=== PATIENT | male | born 1955 | race Caucasian/White ===

== ENCOUNTER 2020-10-22 05:35 | Inpatient (IN) | payer OTHER, SELFPAY ==
[2020-10-22] VITALS (28 sets, daily range): BP systolic 111–168; BP diastolic 47–91; PULSE 72–87; RESP 12–17; TEMP 35.5–36.8; O2SAT 94–99; BMI 30.9
--- NOTE | ~2020-10-22 | US_ITS ---
EXAMINATION: US carotid duplex BI EXAM DATE: 10/24/2020 13:25 INDICATION: Carotid bruit. TECHNIQUE: Grayscale, color and pulsed Doppler images of the cervical carotid arteries were obtained . The degree of vessel stenosis is placed in one of the following categories: normal, <50% stenosis, 50-69% stenosis, >=70% stenosis but less than near-occlusion, near-occlusion, or occlusion. Note that percent stenosis relative to normal distal artery lumen diameter is indirectly measured from velocit y measurements as described by George, et al. Radiology 2003; 229:340-346. There is no prior study fo r comparison. FINDINGS: RIGHT SIDE: Right common carotid artery peak systolic velocity (PSV in cm/s): 94 Right bulb/internal carotid artery peak systolic velocity (PSV in cm/s): 77 Right internal carotid artery end diastolic velocity (EDV in cm/s): 0 Right ICA/CCA peak systolic ratio: 0.8 Right external carotid artery peak systolic velocity (PSV in cm/s): Right vertebral artery antegrade flow: yes Large amount of dense plaque at the proximal ICA for about 1.5 cm, cannot identify flow within the marianela men from narrowing. Distal to this the systolic velocity is normal, but there is complete loss of chris stolic flow. LEFT SIDE: Left common carotid artery peak systolic velocity (PSV in cm/s): 104 Left bulb/internal carotid artery peak systolic velocity (PSV in cm/s): 128 Left internal carotid artery end diastolic velocity (EDV in cm/s): 25 Left ICA/CCA peak systolic ratio: 1.2 Left external carotid artery peak systolic velocity (PSV in cm/s): 232 Left vertebral artery antegrade flow: yes There is moderate carotid bulb plaque. Velocity and Doppler waveforms in the common and internal carotid arteries is normal. IMPRESSION: 1. Possible near occlusion right internal carotid artery. CTA carotid should be considered. 2. Less than 50 percent stenosis in the left internal carotid artery. Reviewed, dictated and finalized at location B. EL TICKETING REVIEWER IMPRESSION: 1. Possible near occlusion right internal carotid artery. CTA carotid should b e considered. 2. Less than 50 percent stenosis in the left internal carotid artery.
--- NOTE | ~2020-10-22 | XR_ITS ---
EXAMINATION: XR chest 1V portable EXAM DATE: 10/22/2020 05:59 INDICATION: Chest pain, stomach. TECHNIQUE: Portable AP frontal chest x-ray was obtained. Comparison is made to prior examination from 08/16/2019. FINDINGS: The lungs are clear. There are no pleural effusions. Cardiomediastinal silhouette is norm al. There is no pneumothorax suspected. The bones and soft tissues are unremarkable. IMPRESSION: No acute cardiopulmonary findings. Reviewed, dictated and finalized at location A. P STITCHER
--- NOTE | ~2020-10-22 | CT_ITS ---
EXAMINATION: CTA brain carotid DATE: 10/24/2020 14:58 INDICATION: Carotid stenosis. TECHNIQUE: Computed tomographic angiography (CTA) of the head was performed without and with 100 mL O mnipaque-350 intravenous contrast. CTA of the neck was performed with intravenous contrast. Automated exposure control and iterative reconstruction technique were employed. The dose-length product was 1 861.85 mGy-cm. Maximum intensity projection and volume rendered 3D-reconstructions were created by alexandra booth technologist on a separate workstation. COMPARISON: Ultrasound 10/24/2020 FINDINGS: HEAD CTA: There is an old infarct in left frontoparietal region. There is no intracranial hemorrhage, acute infarction, or abnormal intracranial mass lesion. The ventricles are normal in size. There is mucosal thickening and dependent fluid in the paranasal sinuses. There are old fracture deformities o f the nasal bones. The orbits are normal. The mastoid air cells are normal. The vertebral arteries ar e codominant. There is no significant stenosis of basilar artery or the posterior cerebral arteries. There is moderate stenosis of intracranial right internal carotid artery. There is severe stenosis of intracranial left internal carotid artery. The posterior communicating arteries are normal. Anterior communicating artery is normal. Right A1 anterior cerebral artery segment is small, a normal variant . There is no significant stenosis of the middle cerebral arteries. There is no aneurysm. NECK CTA: There are no pathologically enlarged lymph nodes. There is severe stenosis of origin of lef t vertebral artery. There is plaque in the proximal internal carotid arteries. Distal cervical right internal carotid artery is small, consistent with near occlusion stenosis. There is 26% stenosis of t he proximal left internal carotid artery relative to normal distal artery lumen diameter (NASCET crit eria). There is moderate cervical spondylosis. IMPRESSION: 1. 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 2. Near-occlusion stenosis of proximal right internal carotid artery. 3. 26% stenosis of the proximal left internal carotid artery relative to normal distal artery lumen d iameter (NASCET criteria). 4. Moderate stenosis of intracranial right internal carotid artery. 5. Severe stenosis of intracranial left internal carotid artery. 6. Severe stenosis of origin of left vertebral artery. Reviewed, dictated and finalized at location A. STRINGER IMPRESSION: 1. 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 2. Near-occlusion stenosis of proximal right internal carotid artery. 3. 26% stenosis of the proximal left internal carotid artery relative to normal distal artery lumen diameter (NASCET criteria). 4. Moderate stenosis of intracranial right internal carotid artery. 5. Severe stenosis of intracranial left internal carotid artery. 6. Severe stenosis of origin of left vertebral artery.
--- NOTE | 2020-10-22 05:42 | PC.NURSE ---
aspirin 162 mg by ems , aspirin 162 by ed. heparin 4000 units morphine 2 mg.
--- NOTE | 2020-10-22 05:44 | ECG_ITS ---
Measurements Intervals [place] Rate: 77 P: 67 NE: 183 QRS: 37 QRSD: 96 T: 78 QT: 402 QTc: 456 Interpretive Statements SINUS RHYTHM INFERIOR ST ELEVATION MYOCARDIAL INFARCT- ACUTE BASELINE ARTIFACT- I, II, AVR ABNORMAL ECG Electronically Signed On 10-22-2020 7:01:29 POWER BALLAST MACHINE OPERATOR by Shreyas Mckeon D.O.
[2020-10-22 05:46] LABS: Basophils Absolute Auto 0.1 K/mm3 (0.0-0.1); Basophils Percent Auto 0.8 % (0.2-1.2); Eosinophils Absolute Auto 2.4 K/mm3 (0-0.3); Eosinophils Percent Auto 17.2 % (0-4.4); Hematocrit 42.3 % (42.0-52.0); Immature Granulocyte Absolute 0.11 K/mm3 (0.00-0.031); Immature Granulocyte Percent A 0.8 % (0-0.5); Lymphocytes Percent Auto 30.4 % (18.3-44.2); Mean Corpuscular HGB Conc 33.1 g/dl (32-36); Mean Corpuscular Hemoglobin 29.7 pg (26-34); Mean Corpuscular Volume 89.6 fl (80-100); Monocytes Absolute Auto 1.2 K/mm3 (0.1-0.6); Monocytes Percent Auto 8.3 % (2.6-8.5); Neutrophils Percent Auto 42.5 % (45.5-73.1); Platelet Count Result 205 k/mm3 (150-375); Red Blood Count 4.72 M/mm3 (4.6-6.20); Red Cell Distribution Width 12.7 % (11.5-14.5); White Blood Count 14.2 K/mm3 (4.5-10.0)
[2020-10-22] MEDS: MORPHINE SULFATE (*CRX) 2 MG/ML INJ (05:48)
[2020-10-22] MEDS: TICAGRELOR 90 MG TABLET 180 MG PO (05:48)
--- NOTE | 2020-10-22 05:49 | ED.CHESTPAIN ---
HPI - Chest Pain General Chief Complaint: Chest Pain Stated Complaint: CP Time Seen by Provider: 10/22/20 05:38 History of Present Illness HPI narrative: Patient is a 65-year-old male who presents to the ER with chest pain. Activated as STEMI in field by EMS. 30 minutes prior to arrival patient was awoken from sleep with central chest squeezing that radiates down his left arm. 7 no nausea or vomiting or difficulty breathing. No sweats. No previous history of RI. He is not on any blood thinners. He has found no alleviating factors. Related Data Home Medications Medication Instructions Recorded Confirmed budesonide-formoterol [Symbicort] INHALATION 10/22/20 budesonide-formoterol [Symbicort] INHALATION 10/22/20 fluticasone propionate INTRANASAL 10/22/20 metoprolol succinate PO 10/22/20 zolpidem 10/22/20 10/22/20 Allergies Allergy/AdvReac Type Severity Reaction Status Date / Time No Known Allergies Allergy Verified 08/15/19 23:48 Review of Systems Review of Systems: All systems reviewed & are unremarkable except as noted in HPI and below Constitutional: Constitutional: Denies chills, Denies fever(s) and Denies weakness ENT: Denies nasal congestion and Denies sore throat Cardiovascular: Cardiovascular: Reports chest pain, Denies rapid heart rate and Reports radiating jaw, neck or arm pain Respiratory: Respiratory: Denies cough, Denies dyspnea and Denies wheezing Gastrointestinal: Gastrointestinal: Denies abdominal pain, Denies nausea and Denies vomiting PMF Past Medical History Medical History (Updated 10/22/20 @ 06:19 by Merlin العلي MD) COPD (chronic obstructive pulmonary disease) Depression Hip fracture, right HTN (hypertension) Surgical History Surgical History (Updated 08/15/19 @ 23:46 by Gera Reyes) No history of previous surgery Social History Social History (Updated 08/15/19 @ 23:53 by Gera Reyes) Smoking status: Former smoker Additional living arrangements comments: Pt lives at [facility]. Exam Narrative: Exam Narrative: GENERAL: Well-appearing, well-nourished, and in no acute distress. HEAD: Normocephalic, atraumatic. ENT: Mucous membranes moist. CHEST: Clear to auscultation. No respiratory distress. HEART: Regular rate and rhythm. Normal peripheral pulses. ABDOMEN: Soft, nontender, nondistended. EXTREMITIES: Normal range of motion. No edema. SKIN: Warm, moist, fungal type rash of the feet bilaterally with sloughing of skin. NEURO: Alert and oriented x3. PSYCH: Normal mood and affect. Course Reevaluation(s) Reevaluation #1: podopediatrician as well as STEMI team in rounds. Patient to receive Brilinta, heparin, 2 additional tabs of aspirin, and morphine for pain. Date: 10/22/20 Time: 05:55 Reevaluation #2: Cath team at bedside to take patient. Date: 10/22/20 Time: 06:19 Vital Signs Vital signs: Vital Signs Temperature 97.4 F L 10/22/20 05:31 Pulse Rate 79 10/22/20 05:31 Respiratory Rate 17 10/22/20 05:31 Blood Pressure 168/82 H 10/22/20 05:31 Pulse Oximetry 96 10/22/20 05:31 Temperature 97.4 F L 10/22/20 05:31 Pulse Rate 75 10/22/20 06:17 Respiratory Rate 17 10/22/20 06:17 Blood Pressure 161/81 H 10/22/20 06:17 Pulse Oximetry 99 10/22/20 06:17 MDM - Chest Pain Lab Data Result diagrams: 10/22/20 05:40 10/22/20 05:40 Labs: Lab Results 10/22/20 10/22/20 10/22/20 Range/Units 05:40 05:40 05:40 WBC 14.2 H (4.5-10.0) K/mm3 RBC 4.72 (4.6-6.20) M/mm3 Hgb 14.0 (14.0-18.0) g/dL Hct 42.3 (42.0-52.0) % MCV 89.6 (80-100) fl MCH 29.7 (26-34) pg MCHC 33.1 (32-36) g/dl RDW 12.7 (11.5-14.5) % Plt Count 205 (150-375) k/mm3 MPV 9.0 (7.4-10.4) fl Immature Gran % (Auto) 0.8 H (0-0.5) % Neut % (Auto) 42.5 L (45.5-73.1) % Lymph % (Auto) 30.4 (18.3-44.2) % [place] % (Auto) 8.3 (2.6-8.5) % Eos
[2020-10-22 05:57] LABS: INR 0.9; Prothrombin Time 13.2 Seconds (11.1-14.7)
[2020-10-22 05:58] LABS: Alanine Aminotransferase 22 U/L (4-50); Alkaline Phosphatase 94 U/L (38-126); Anion Gap 4 mmol/L (8-16); Aspartate Amino Transferase 25 U/L (17-59); Bilirubin,Total 0.4 mg/dL (0.2-1.3); Blood Urea Nitrogen 10 mg/dL (9-20); Calcium 8.9 mg/dL (8.4-10.2); Carbon Dioxide 30 mmol/L (22-30); Chloride 102 mmol/L (98-107); Cholesterol 151 mg/dL (0-200); Estimated CRCL calculation 107 ml/min; Estimated Glomerular Filt Rate > 60; Glucose 248 mg/dL (75-110); HDL Direct 44 mg/dL; Partial Thromboplastin Time 26.8 SECONDS (22.3-36.8); Sodium 136 mmol/L (137-145); Triglycerides 106 mg/dL (<150)
--- NOTE | 2020-10-22 06:05 | PC.NURSE ---
awaiting metallurgy laboratory technician.
[2020-10-22 06:09] LABS: LDL Cholesterol Direct 90 mg/dL
[2020-10-22 06:11] LABS: Troponin I < 0.012 ng/mL (0.000-0.034)
--- NOTE | 2020-10-22 06:18 | PC.NURSE ---
open hearth laborer rn,s @ beside to open hearth laborer
--- NOTE | 2020-10-22 07:08 | ECG_ITS ---
Measurements Intervals [place] Rate: 82 P: 72 UT: 183 QRS: 32 QRSD: 84 T: 45 QT: 407 QTc: 476 Interpretive Statements SINUS RHYTHM NORMAL ECG Electronically Signed On 10-22-2020 8:30:34 NECK BAND MAKER by Shreyas Mckeon D.O.
--- NOTE | 2020-10-22 07:11 | WPDCARDPROC ---
Cardiac Cath Procedure Note Date of procedure:: 10/22/20 Performing physician:: Herbert Dick MD Indication:: acute inferior wall TN Brief clinical history:: this is a 65-year-old man with a history of hypertension who presents to the hospital with chest pain and ECG evidence of acute inferior wall injury Procedure Procedure performed:: emergency coronary angiography emergency percutaneous revascularization left ventriculography Sedation/Medication given:: morphine given in the ER no additional sedation in the woods laborer case start time 633 a.m. case end time 7:05 a.m. Access site:: right femoral artery Estimated blood loss:: 20-30 cc Procedure note:: patient was brought to the cardiac catheterization lab in the postabsorptive state where the right femoral triangle was prepped and draped in the usual fashion. Anesthesia was provided with 1% lidocaine infiltrated locally. The patient was very calm and had been given morphine in the emergency room I did therefore did not administer any additional sedation in the woods laborer. Using the modified Seldinger technique a 6 Thai vascular sheath was placed into femoral artery. I then used a 5 Thai FL4 catheter to engage inject the left coronary artery in multiple projections. After this I used a 6 Thai JR4 guiding catheter to engage and inject the right coronary artery. The cine angiograms were then reviewed and PCI of the distal right coronary artery was recommended and carried out as detailed below. I changed catheters for a 6 Thai JR4 catheter with side holes as the standard catheter was occluding the vessel as it was moderate to smaller in size. Following this PCI of the right coronary artery was carried out as detailed below. The patient had been given aspirin and a loading dose of Brilinta in the emergency room. He received bolus and infusion of Angiomax for anticoagulation during this intervention. Following intervention a 5 Thai pigtail catheter was used to measure left-sided hemodynamics and injected LV g in the WALSH projection. The case was then terminated. The sheath was sutured into position the patient was taken to the ICU for post TN/PCI recovery. The procedure was well tolerated there were no apparent complications and he left the woods laborer with no evidence of a groin hematoma. Findings:: Hemodynamics: Central aortic pressure is 138/62 left ventricle 138 over 5 end-diastolic pressure of 22. No gradient on pullback across the aortic valve. Left ventricle: The LV is normal in size the infero posterior segment is markedly hypodynamic but not akinetic the remainder of the LV contracts well the global ejection fraction is 45%. The left main coronary artery is widely patent the LAD is a medium caliber artery with mild luminal irregularities proximally and in the midportion there is no significant stenosis in the LAD there was BETHANY 3 flow in the vessel. The circumflex is a rather small artery. There is a moderate size ramus intermedius branch that distributes as high OM1. This vessel has a 70-80% stenosis proximally. The trunk of the circumflex which is very small has about 70% stenosis a 2nd OM branch which is very small has a long tubular 80-90% proximal stenosis. Despite this there is BETHANY 3 flow in the vessel the ostium of this branch is the at the ostium of the circumflex trunk and in close proximity therefore to the left main. The right coronary artery is medium caliber vessel and dominant to the posterior wall. The midportion of the RCA has modest 40-50% stenosis. There is a 95-99% stenosis in the 3rd portion of the vessel a short distance prior to the PDA PL bifurcation. These vessels distally are small but not significantly disease. Intervention: The right coronary artery once again was engaged with a 6 Thai JR4 guiding catheter with side holes. A 0.014 BMW coronary guidewire was advanced into the distal RCA across the lesion and the wire
--- NOTE | 2020-10-22 07:22 | PM.IMHP ---
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 Patient is unknown to me prior to this encounter. History is therefore very brief and truncated. He apparently is a resident of a local senior living because of a significant injury to the right lower extremity on the job number of years ago. He began to experience chest pain early this morning which awakened him from sleep. He had he EMS contacted and ECG in the field was diagnostic of acute inferior infarction and as such STEMI was activated. He reports no previous knowledge of cardiac problems he does state that he has hypertension and some element of chronic lung disease as well as this injury to the right lower extremity which occurred as an on the job injury. The ER physician indicated that he also may have some psychiatric history. Review of Systems Review of Systems: ROS unobtainable: Yes unobtainable due to medical condition PMFSH Past Medical History Medical History (Updated 10/22/20 @ 06:19 by Merlin العلي MD) COPD (chronic obstructive pulmonary disease) Depression Hip fracture, right HTN (hypertension) Surgical History Surgical History (Updated 08/15/19 @ 23:46 by Gera Reyes) No history of previous surgery Social History Social History (Updated 08/15/19 @ 23:53 by Gera Reyes) Smoking status: Former smoker Additional living arrangements comments: Pt lives at [facility]. Meds Home Medications and Allergies Home Medications Medication Instructions Recorded Confirmed Type albuterol sulfate 2 puff INHALATION QID #8.5 gm 08/16/19 Rx prednisone 60 mg PO DAILY 4 Days #12 tablet 08/16/19 Rx budesonide-formoterol [Symbicort] INHALATION 10/22/20 History budesonide-formoterol [Symbicort] INHALATION 10/22/20 History fluticasone propionate INTRANASAL 10/22/20 History metoprolol succinate PO 10/22/20 History zolpidem 10/22/20 10/22/20 History Allergies Allergy/AdvReac Type Severity Reaction Status Date / Time No Known Allergies Allergy Verified 08/15/19 23:48 Vital Signs Vital Signs - 24 hr 10/22/20 05:31 10/22/20 05:49 10/22/20 06:02 Temperature 36.3 C L Pulse Rate 79 77 Respiratory Rate 17 12 Blood Pressure 168/82 H 166/88 H Pulse Oximetry 96 99 99 10/22/20 06:17 Temperature Pulse Rate 75 Respiratory Rate 17 Blood Pressure 161/81 H Pulse Oximetry 99 Exam Const: General: uncomfortable HENMT: Mouth: Yes moist mucous membranes Eyes: Sclera: sclerae normal Pupils: Equal, round and reactive pupils present Neck: Neck: supple and no JVD Thyroid: thyroid normal Other: Carotid pulses are intact and free of bruits. Resp: Effort & Inspection: normal respiratory effort Auscultation: diminished lung sounds Cardio: Rate: regular rate Rhythm: regular rhythm Other: No apparent murmur S4 is noted GI: GI Palp: Yes Soft to palpation Auscultation: normal bowel sounds Skin: General skin exam: normal color Neuro: Cognition (Neuro): normal cognition Extrem: Other: patient has diminished pulses in the lower extremities. The right lower extremity is shorter than the left. There is very poor hygiene of the feet bilaterally H&P: Results Labs Labs: Short CBC 10/22/20 Range/Units 05:40 WBC 14.2 H (4.5-10.0) K/mm3 Hgb 14.0 (14.0-18.0) g/dL Hct 42.3 (42.0-52.0) % Plt Count 205 (150-375) k/mm3 BMP 10/22/20 05:40 Sodium 136 L Potassium 4.0 Chloride 102 Carbon Dioxide 30 BUN 10 Creatinine 0.70 Glucose 248 H Calcium 8.9 Cardiac Enzymes 10/22/20 Range/Units 05:40 Troponin I < 0.012 (0.000-0.034) ng/mL Liver Function 10/22/20 Range/Units 05:40 Total Bilirubin 0.4 (0.2-1.3) mg/dL AST 25 (17-59) U/L ALT 22 (4-50)
--- NOTE | 2020-10-22 07:39 | ADMGEN ---
This patient, Jesus Guerra, was admitted to Intensive Care Unit-5. Patient/family oriented to hospital policies and general routines including ID bracelet, bed and alarms, visiting hours, pain management, procedures, bathroom and other care routines, personal items, smoking policy, room service/diet, and visiting hours. Information on how to activate the Rapid Response Team has been discussed. Patient/Family are encouraged to report perceived risks to care and to ask questions if they do not understand what they are told or what they should do.
[2020-10-22] MEDS: SODIUM CHLORIDE 0.9% IV 1,000 ML 125 ML IV CONT (08:00)
--- NOTE | 2020-10-22 08:20 | WPDCNINT ---
Assessment and Plan Assessment and plan (1) ST elevation (STEMI) myocardial infarction: Code(s): I21.3 - ST elevation (STEMI) myocardial infarction of unspecified site Status: Acute Assessment and Plan: Inferior STEMI status post PCI and drug-eluting stent placement to RCA Patient has multivessel coronary disease and will need further intervention in future and other vessels Continue ICU monitoring Check echocardiogram Check lipid profile Continue aspirin Brilinta beta-carmelita ARB and statin (2) CAD (coronary artery disease): Code(s): I25.10 - Atherosclerotic heart disease of [place] coronary artery without angina pectoris Status: Acute Assessment and Plan: See above (3) Ischemic cardiomyopathy: Code(s): I25.5 - Ischemic cardiomyopathy Status: Acute Assessment and Plan: See above (4) HTN (hypertension): Code(s): I10 - Essential (primary) hypertension Status: Acute Assessment and Plan: Continue metoprolol and Cozaar Adjust depending on response (5) COPD (chronic obstructive pulmonary disease): Code(s): J44.9 - Chronic obstructive pulmonary disease, unspecified Status: Acute Assessment and Plan: Not in exacerbation DuoNeb p.r.n. Continue Symbicort (6) Hyperglycemia: Code(s): R73.9 - Hyperglycemia, unspecified Status: Acute Assessment and Plan: Elevated blood sugar on BMP. 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 No relieving factors. Denied any nausea vomiting or palpitations. Patient presented to ED and had EKG consistent with inferior ST segment elevation [place]. Patient was taken to cardiac labor/excavator where he underwent PCI to RCA. Patient now admitted to ICU for further evaluation management. He denies any symptoms at this point and states pain has resolved. Review of systems was positive for cough occasionally but not at this time shortness of breath on exertion and he uses inhalers for that. He uses a cane to walk. All other systems were reviewed and were negative Other past medical history-patient was tested positive for COVID in August but he states that he did not had any symptoms and did not need any treatment or hospitalization Social history-patient used to smoke 1 and half pack per day of cigarettes and smoked until 10 years ago. Started smoking at age of 19. 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 Used to drink alcohol in the past but currently is not. No history of any drug use Review of Systems Review of Systems: All systems reviewed & are unremarkable except as noted in HPI and below (HPI) [facility] Past Medical History Medical History COPD (chronic obstructive pulmonary disease) Depression Hip fracture, right HTN (hypertension) Surgical History Surgical History No history of previous surgery Family History Family History Father Cancer Mother Acute myocardial infarction Social History Social History (Review
[2020-10-22 09:03] LABS: Cholesterol 149 mg/dL (0-200); HDL Direct 43 mg/dL; Hemoglobin A1C 8.5 % (<5.7); Triglycerides 96 mg/dL (<150)
[2020-10-22 09:20] LABS: LDL Cholesterol Direct 90 mg/dL
[2020-10-22] MEDS: LOSARTAN POTASSIUM 25 MG TABLET PO (09:46)
[2020-10-22] MEDS: ROSUVASTATIN 10 MG TABLET 20 MG PO (09:46)
[2020-10-22] MEDS: ASPIRIN 81 MG CHEWABLE TABLET PO (09:46)
[2020-10-22] MEDS: METOPROLOL SUCCINATE EXT REL 50 MG TABCR PO (09:46)
[2020-10-22] MEDS: CITALOPRAM HYDROBROMIDE 20 MG TABLET PO (10:36)
--- NOTE | 2020-10-22 11:36 | PC.NURSE ---
Covid swab ordered for pt to be able to return back to [facility]
[2020-10-22] MEDS: INSULIN ASPART (*BKC) 100 UNITS/ML SUB-Q ×2 (12:47→17:07)
[2020-10-22 14:15] LABS: Glucose Point of Care 267 (65-105)
[2020-10-22 17:02] LABS: Glucose Point of Care 218 (65-105)
[2020-10-22] MEDS: BUDESONIDE/FORMOTEROL (*SP) 160-4.5 MCG 6 GM INH 2 PUFF INHALATION (19:41)
[2020-10-22] MEDS: ZOLPIDEM TARTRATE (*CRX) 5 MG TABLET 10 MG PO (21:38)
[2020-10-22] MEDS: CALCIUM CARBONATE (TUMS) 500 MG (200 MG ELEMENTAL) PO (21:38)
[2020-10-22] MEDS: TICAGRELOR 90 MG TABLET PO (21:42)
[2020-10-22 21:50] LABS: Glucose Point of Care 269 (65-105)
[2020-10-23] VITALS (20 sets, daily range): BP systolic 101–159; BP diastolic 58–97; PULSE 69–89; RESP 12–19; TEMP 36.2–36.7; O2SAT 87–99
[2020-10-23 04:44] LABS: Hematocrit 41.4 % (42.0-52.0); Hemoglobin 13.6 g/dL (14.0-18.0); Mean Corpuscular HGB Conc 32.9 g/dl (32-36); Mean Corpuscular Hemoglobin 29.3 pg (26-34); Mean Corpuscular Volume 89.2 fl (80-100); Mean Platelet Volume 9.4 fl (7.4-10.4); Platelet Count Result 194 k/mm3 (150-375); Red Blood Count 4.64 M/mm3 (4.6-6.20); Red Cell Distribution Width 12.9 % (11.5-14.5); White Blood Count 15.2 K/mm3 (4.5-10.0)
[2020-10-23 05:00] LABS: Alanine Aminotransferase 33 U/L (4-50); Albumin Level 3.5 g/dL (3.5-5.1); Alkaline Phosphatase 81 U/L (38-126); Anion Gap 3 mmol/L (8-16); Aspartate Amino Transferase 106 U/L (17-59); Bilirubin,Total 0.6 mg/dL (0.2-1.3); Blood Urea Nitrogen 10 mg/dL (9-20); Calcium 8.5 mg/dL (8.4-10.2); Carbon Dioxide 28 mmol/L (22-30); Chloride 104 mmol/L (98-107); Estimated CRCL calculation 108 ml/min; Estimated Glomerular Filt Rate > 60; Glucose 214 mg/dL (75-110); Magnesium 1.7 mg/dL (1.6-2.3); Potassium 3.9 mmol/L (3.4-5.0); Sodium 135 mmol/L (137-145)
--- NOTE | 2020-10-23 05:11 | ECG_ITS ---
Measurements Intervals [place] Rate: 75 P: 74 [place]: 167 QRS: 16 QRSD: 75 T: -27 QT: 443 QTc: 497 Interpretive Statements SINUS RHYTHM T WAVE ABNORMALITY IN INFERIOR LEADS- CONSIDER ISCHEMIA ABNORMAL ECG Electronically Signed On 10-23-2020 7:41:23 LOAN DOCUMENTS CLOSER by Shreyas Mckeon D.O.
[2020-10-23] MEDS: BUDESONIDE/FORMOTEROL (*SP) 160-4.5 MCG 6 GM INH 2 PUFF INHALATION ×2 (08:15→19:01)
[2020-10-23] MEDS: TICAGRELOR 90 MG TABLET PO ×2 (08:21→20:06)
[2020-10-23 08:23] LABS: Glucose Point of Care 199 (65-105)
--- NOTE | 2020-10-23 08:30 | WPDINTPN ---
Progress Note: A&P Assessment and Plan (1) ST elevation (STEMI) myocardial infarction: Code(s): I21.3 - ST elevation (STEMI) myocardial infarction of unspecified site Status: Acute Assessment and Plan: Inferior STEMI status post PCI and drug-eluting stent placement to RCA Patient has multivessel coronary disease and will need further intervention in future and other vessels Patient asymptomatic at this time Pending echocardiogram Continue aspirin Brilinta beta-carmelita ARB and statin (2) CAD (coronary artery disease): Code(s): I25.10 - Atherosclerotic heart disease of [place] coronary artery without angina pectoris Status: Acute Assessment and Plan: See above (3) Ischemic cardiomyopathy: Code(s): I25.5 - Ischemic cardiomyopathy Status: Acute Assessment and Plan: See above Echo pending (4) HTN (hypertension): Code(s): I10 - Essential (primary) hypertension Status: Acute Assessment and Plan: Continue metoprolol and Cozaar BP in acceptable range (5) COPD (chronic obstructive pulmonary disease): Code(s): J44.9 - Chronic obstructive pulmonary disease, unspecified Status: Acute Assessment and Plan: Not in exacerbation DuoNeb p.r.n. Continue Symbicort (6) Hyperglycemia: Code(s): R73.9 - Hyperglycemia, unspecified Status: Acute Assessment and Plan: Elevated blood sugar in patient. Patient does not have diagnosis of diabetes his HbA1c is also 8.5. Patient told me that his blood sugar checks at the nursing or have been normal but it seems that he has undiagnosed diabetes I will start patient on metformin at this time and continue Sliding scale insulin (7) Depression: Code(s): F32.9 - Major depressive disorder, single episode, unspecified Status: Inactive Assessment and Plan: Continue Celexa Additional Plan Patient would benefit from podiatry referral as an outpatient DVT prophylaxis -start Lovenox Nutrition -cardiac diet Code Status - Full Code Transfer out of ICU today Subjective Date/time seen: 10/23/20 08:30 Patient feels better this morning and denies any complaints. He slept well and no pain shortness of breath or cough this All other systems were reviewed and were negative I mentioned that his blood sugars in the hospital are high and he told me that he gets it frequently checked at the halfway and they have been normal and was surprised that his blood sugars are elevated Review of Systems Review of Systems: All systems reviewed & are unremarkable except as noted in HPI and below (Subjective) Exam Narrative: Exam Narrative: General: Pt is alert awake and in NAD Lungs/Chest: Trachea central clear BS B/L, with decreased air movement bilaterally No crackles or wheezing. Cardiac: RRR. Normal S1 S2. No murmurs Circulation: Pedal pulses are intact and symmetrical. Abdomen: Normal bowel sounds.. Soft. NT. ND. Extremities: No clubbing, cyanosis or edema. Warm right groin arterial sheath with no swelling or redness surrounded : Vazquez in place Neurologic: Follows commands. Moves all 4 extremities PERRL Skin: Several excoriated areas on right leg, pretty bad shape of his feet with dry sloughing skin with scaling and long disformed toenails Objective Data Vital Signs Vital Signs: Vital Signs - 24 hr 10/22/20 08:53 10/22/20 09:59 10/22/20 10:00 Temperature Pulse Rate 77 81 74 Pulse Rate [Right Pedal (Dorsalis Pedis) Palpation] 81 Respiratory Rate 16 12 Blood Pressure 137/73 142/77 H Pulse Oximetry 98 99 10/22/20 10:05 10/22/20 10:10 10/22/20 10:15 Temperature 35.5 C L Pulse Rate 74 79 78 Pulse Rate [Right Pedal (Dorsalis Pedis) Palpation] Respiratory Rate 12 14 14 Blood Pressure 139/89 114/66 116/67 Pulse Oximetry 99 95 96 10/22/20 10:33 10/22/20 11:33 10/22/20 12:00 Temperature Pulse Rate 79 79 79 Pulse Rate [Right Pedal (Dorsalis Pedis) Pa
--- NOTE | 2020-10-23 09:23 | PM.PNCARD ---
Progress Note: A&P Additional Plan 65-year-old man status post inferior wall ST-elevation MO about 24 hours ago. Doing well at this point. He will be continued on his current cardiac regimen and transferred to IMU. Lab data does indicate that he has type 2 diabetes. We will consult the hospitalists for initiation of treatment for this. Anticipate potential discharge Saturday or Saturday depending on how he is doing. If he becomes symptomatic with chest pain PCI of his ramus intermedius branch could certainly be attempted in my opinion. PCI of the smaller OM branch would be more hazardous because of the proximity of this lesion to the left main. It would also be of much less benefit since it is a fairly small artery. Herbert Dick MD [facility] Subjective Date/time seen: Date of service: 10/23/20 09:23 Interval history: 65-year-old man with: Coronary artery disease diagnosed yesterday with acute inferior wall myocardial infarction high-grade distal right coronary stenosis was treated successfully with PCI (XAVI) . Patient does have significant stenosis in a small OM branch as well as moderate stenosis in a large ramus intermedius. These are asymptomatic and unrelated to yesterday's emergency. Patient is doing well this morning asymptomatic had a non Szatkowski rate eventful night in the ICU and offers no complaints. Hemoglobin A1c is elevated enough to give him the diagnosis of non insulin-dependent diabetes. Exam Const: General: comfortable and no acute distress HENMT: Mouth: Yes moist mucous membranes Eyes: Sclera: sclerae normal Pupils: Equal, round and reactive pupils present Neck: Neck: supple and no JVD Thyroid: thyroid normal Resp: Effort & Inspection: normal respiratory effort Auscultation: clear to auscultation bilaterally Cardio: Rate: regular rate Rhythm: regular rhythm Other: No murmur no gallop no rub GI: GI Palp: Yes Soft to palpation Auscultation: normal bowel sounds Skin: General skin exam: normal color Neuro: Cognition (Neuro): normal cognition Extrem: Other: Right groin puncture site looks unremarkable no hematoma no bruit Objective Data Vital Signs Vital Signs: Vital Signs - 24 hr 10/22/20 09:59 10/22/20 10:00 10/22/20 10:05 Temperature Pulse Rate 81 74 74 Pulse Rate [Right Pedal (Dorsalis Pedis) Palpation] 81 Respiratory Rate 12 12 Blood Pressure 142/77 H 139/89 Pulse Oximetry 99 99 10/22/20 10:10 10/22/20 10:15 10/22/20 10:33 Temperature 35.5 C L Pulse Rate 79 78 79 Pulse Rate [Right Pedal (Dorsalis Pedis) Palpation] 81 Respiratory Rate 14 14 16 Blood Pressure 114/66 116/67 117/91 H Pulse Oximetry 95 96 97 10/22/20 11:33 10/22/20 12:00 10/22/20 12:33 Temperature Pulse Rate 79 79 76 Pulse Rate [Right Pedal (Dorsalis Pedis) Palpation] 79 76 Respiratory Rate 14 14 Blood Pressure 137/68 121/71 Pulse Oximetry 97 97 10/22/20 12:53 10/22/20 13:33 10/22/20 13:54 Temperature Pulse Rate 77 80 80 Pulse Rate [Right Pedal (Dorsalis Pedis) Palpation] 80 Respiratory Rate 14 14 Blood Pressure 142/81 H 143/75 H Pulse Oximetry 98 98 10/22/20 14:33 10/22/20 16:00 10/22/20 17:29 Temperature 36.3 C L Pulse Rate 83 77 82 Pulse Rate [Right Pedal (Dorsalis Pedis) Palpation] 83 Respiratory Rate 14 16 Blood Pressure 143/76 H 139/71 Pulse Oximetry 99 96 10/22/20 18:00 10/22/20 19:42 10/22/20 20:00 Temperature 36.8 C Pulse Rate 78 87 83 Pulse Rate [Right Pedal (Dorsalis Pedis) Palpation] Respiratory Rate 14 14 17 Blood Pressure 151/77 H 111/47 L Pulse Oximetry 99 98 97 10/22/20 22:00 10/23/20 00:00 10/23/20 02:00 Temperature 36.7 C Pulse Rate 72 77 74 Pulse Rate [Right Pedal (Dorsalis Pedis) Palpation] Respiratory Rate 16 17 15 Blood Pressure 119/72 123/67 117/61 Pulse Oximetry 99 97 98 10/23/20 04:00 10/23/20 06:00 10/23/20 08:00 Temperature 36.7 C Pulse Rate 74 70 75 Pulse Rate [Right Pedal (Dorsalis Pedis
[2020-10-23] MEDS: ROSUVASTATIN 10 MG TABLET 20 MG PO (10:31)
[2020-10-23] MEDS: METOPROLOL SUCCINATE EXT REL 50 MG TABCR PO (10:31)
[2020-10-23] MEDS: CITALOPRAM HYDROBROMIDE 20 MG TABLET PO (10:31)
[2020-10-23] MEDS: LOSARTAN POTASSIUM 25 MG TABLET PO (10:31)
[2020-10-23] MEDS: ENOXAPARIN 40 MG/0.4 ML SYRINGE SUB-Q (10:32)
[2020-10-23] MEDS: MAGNESIUM SULF 1 GM/D5W 100 ML 1 GM/100 ML BAG IVPB (10:32)
[2020-10-23] MEDS: ASPIRIN 81 MG CHEWABLE TABLET PO (10:32)
[2020-10-23 11:59] LABS: Glucose Point of Care 225 (65-105)
[2020-10-23] MEDS: INSULIN ASPART (*BKC) 100 UNITS/ML SUB-Q (12:59)
[2020-10-23 16:06] LABS: Glucose Point of Care 170 (65-105)
--- NOTE | 2020-10-23 16:07 | PM.IMCN ---
Assessment and Plan Assessment and plan (1) Diabetes mellitus: Code(s): E11.9 - Type 2 diabetes mellitus without complications Status: Acute Assessment and Plan: Glucose 248 on admission and has been elevated since. Hemoglobin A1c 8.5. Patient does drink excessive amounts of regular soda. He was educated about the benefits of adhering to healthy lifestyle. Was also educated about the need to stop drinking regular soda. Will add metformin. Continue sliding scale protocol. Will also add Invokana given the benefits in patient with heart disease. Add antifungal cream for feet. Oyster Sorter and DM educator to see. Add DM diet. Will continue sliding scale protocol. Hypoglycemia protocol available as well. (2) ST elevation (STEMI) myocardial infarction: Code(s): I21.3 - ST elevation (STEMI) myocardial infarction of unspecified site Status: Acute Assessment and Plan: Patient discovered in the field to have evidence of inferior ST-elevation [place]. He was taken emergently to [facility] lab[facility] and underwent left heart catheterization. He was discovered to have distal right coronary artery stenosis that was intervened with drug-eluting stent. Patient had excellent results. Plan for aggressive medical management with aspirin, Brilinta, metoprolol, Cozaar, and Crestor. He will need dental evaluation in the near future. Check carotid US given physical findings. (3) Ischemic cardiomyopathy: Code(s): I25.5 - Ischemic cardiomyopathy Status: Acute Assessment and Plan: Left heart catheterization showing the LV is normal in size with an inferior-posterior segment that is hypodynamic but not akinetic resulting in a global EF of 45%. Related to the STEMI. Continue ARB and beta-carmelita. Echocardiogram has been ordered. (4) CAD (coronary artery disease): Code(s): I25.10 - Atherosclerotic heart disease of [place] coronary artery without angina pectoris Status: Acute Assessment and Plan: As above with stent placed emergently. Continue aggressive medical management and modification of risk factors. (5) HTN (hypertension): Code(s): I10 - Essential (primary) hypertension Status: Acute Assessment and Plan: Patient's blood pressure was reviewed. Blood pressure elevated at times. Continue Cozaar and Toprol. Advance medication if persistently elevated. (6) COPD (chronic obstructive pulmonary disease): Code(s): J44.9 - Chronic obstructive pulmonary disease, unspecified Status: Acute Assessment and Plan: Stable. No wheezing. Albuterol available as needed. Symbicort has been resumed. Continue to monitor. (7) DVT prophylaxis: Code(s): Z29.9 - Encounter for prophylactic measures, unspecified Status: Acute Assessment and Plan: Lovenox Additional Plan Elevated WBC - noted. No clinical evidence of infectious process. Suspect stress response. Repeat in am Elevated AST - Noted. Suspect from transient shock liver. May worsen before improving. Follow. Nystagmus - suspect this is related to head trauma and/or from his chronic alcoholism. Check B12/folate. Consider neuroimaging if he has clincial changes. HPI Data of Consult Consult date: 10/24/20 Requesting Physician: Herbert Dick MD Primary Care Provider: UNKNOWN,DOCTOR Consult Narrative Reason for consult: hyperglycemia Narrative: Jesus Guerra is a 65 year old male with history of hypertension here for chest pain and found to have ST-elevation RI. Patient lives at [facility] where has resided for the past 7 years. Patient developed chest pain about 30 minutes prior to arrival that awoken him from sleep. He describes the chest pain as a pressure. No radiation to pain. He denies shortness of breath or nausea. No history of coronary disease. No history of prior chest discomfort over the past few weeks prior to this ad
--- NOTE | 2020-10-23 16:44 | PC.NURSE ---
This patient, Jesus Guerra, was received from [ ICU 5] on 10/23/20 at 1520 . Patient/family oriented to unit policies and routines
[2020-10-23] MEDS: metFORMIN HCL 250 MG TABLET PO (18:24)
[2020-10-23] MEDS: ALBUTEROL SULFATE NEB 2.5 MG/0.5 ML INH INHALATION (19:01)
--- NOTE | 2020-10-23 19:06 | PC.NURSE ---
Left message with Dr. Enrique regarding medication clarification - Butenafine topical ointment. Await new medication orders.
[2020-10-23 19:57] LABS: Glucose Point of Care 277 (65-105)
[2020-10-23] MEDS: ZOLPIDEM TARTRATE (*CRX) 5 MG TABLET 10 MG PO (20:06)
[2020-10-24] VITALS (12 sets, daily range): BP systolic 106–153; BP diastolic 42–87; PULSE 71–83; RESP 16–22; TEMP 35.8–36.2; O2SAT 95–99
[2020-10-24 04:42] LABS: Hematocrit 38.5 % (42.0-52.0); Hemoglobin 12.7 g/dL (14.0-18.0); Mean Corpuscular Hemoglobin 29.7 pg (26-34); Mean Platelet Volume 9.5 fl (7.4-10.4); Platelet Count Result 182 k/mm3 (150-375); Red Blood Count 4.28 M/mm3 (4.6-6.20); Red Cell Distribution Width 13.1 % (11.5-14.5); White Blood Count 13.7 K/mm3 (4.5-10.0)
[2020-10-24 04:53] LABS: Alanine Aminotransferase 29 U/L (4-50); Albumin Level 3.5 g/dL (3.5-5.1); Alkaline Phosphatase 73 U/L (38-126); Anion Gap 4 mmol/L (8-16); Aspartate Amino Transferase 60 U/L (17-59); Bilirubin,Total 0.4 mg/dL (0.2-1.3); Blood Urea Nitrogen 10 mg/dL (9-20); Calcium 8.5 mg/dL (8.4-10.2); Carbon Dioxide 29 mmol/L (22-30); Chloride 103 mmol/L (98-107); Estimated CRCL calculation 107 ml/min; Estimated Glomerular Filt Rate > 60; Glucose 208 mg/dL (75-110); Magnesium 1.7 mg/dL (1.6-2.3); Potassium 3.7 mmol/L (3.4-5.0); Sodium 136 mmol/L (137-145)
[2020-10-24 05:59] LABS: Folic Acid 11.8 ng/mL (2.76->20)
[2020-10-24] MEDS: INSULIN ASPART (*BKC) 100 UNITS/ML SUB-Q ×2 (08:36→13:32)
[2020-10-24] MEDS: TICAGRELOR 90 MG TABLET PO ×2 (08:37→19:27)
[2020-10-24] MEDS: ROSUVASTATIN 10 MG TABLET 20 MG PO (08:37)
[2020-10-24] MEDS: ENOXAPARIN 40 MG/0.4 ML SYRINGE SUB-Q (08:37)
[2020-10-24] MEDS: CANAGLIFLOZIN 100 MG TABLET PO (08:37)
[2020-10-24] MEDS: CITALOPRAM HYDROBROMIDE 20 MG TABLET PO (08:38)
[2020-10-24] MEDS: LOSARTAN POTASSIUM 25 MG TABLET PO (08:38)
[2020-10-24] MEDS: METOPROLOL SUCCINATE EXT REL 50 MG TABCR PO (08:38)
[2020-10-24] MEDS: ASPIRIN 81 MG CHEWABLE TABLET PO (08:38)
[2020-10-24] MEDS: metFORMIN HCL 250 MG TABLET PO (08:38)
[2020-10-24] MEDS: BUDESONIDE/FORMOTEROL (*SP) 160-4.5 MCG 6 GM INH 2 PUFF INHALATION ×2 (08:39→19:29)
[2020-10-24 08:41] LABS: Glucose Point of Care 218 (65-105)
--- NOTE | 2020-10-24 13:40 | PCNSR ---
On 10/24/20, the student, Stephanie Dozier, provided care and completed [facility] documentation on this patient. I have reviewed the student's documentation and agree with the findings.
--- NOTE | 2020-10-24 13:44 | PM.DS ---
DS: Admitting Diagnosis Admitting Diagnosis Admitting Diagnosis: Acute inferior wall myocardial infarction DS: Discharge Diagnosis Discharge Diagnosis (1) ST elevation (STEMI) myocardial infarction: Code(s): I21.3 - ST elevation (STEMI) myocardial infarction of unspecified site Status: Acute DS: Summary Hospital Course Reason for hospitalization: ST-elevation [place] Hospital Course: This is a 65-year-old man who presented to the hospital on the morning of admission with chest pain and ECG evidence of acute inferior wall current of injury. He had no previous history of coronary artery disease. He was brought emergently to the cardiac catheterization lab where emergency angiography demonstrated subtotal high-grade stenosis of the distal right coronary artery as the culprit for this infarction. The inferior wall was hypodynamic but not akinetic. He also was found to have some left coronary disease including a 70-80% stenosis at the 1st segment of a moderate to large size ramus intermedius branch and a 90% stenosis at the origin of a OM branch of circumflex which had its origin very proximal close to the left main distal segment. PCI of the right coronary lesion was recommended and carried out as an emergency in this setting. He received a drug-eluting stent with a nice anatomical and functional result. Patient was recovered in the hospital and did not have any post SD complications. He was placed on a standard medical regimen consisting of dual anti-platelet therapy, beta blockers ARB and rosuvastatin. He also has a history of type 2 diabetes. Medications for this were adjusted during the hospital stay. Today he appears to be a good candidate for discharge he is a half-way resident and is going to be discharged back to the half-way pending his COVID swab results. The patient will be given an appointment for follow-up in our office in 2-3 weeks and follow-up with his PCP as well. Status at Discharge Functional status at discharge: uses cane/walker Time Spent with Patient Time attestation: Total time spent providing and/or coordinating discharge services: Time spent: Greater than 30 minutes Exam Const: General: comfortable and no acute distress HENMT: Mouth: Yes moist mucous membranes Eyes: Sclera: sclerae normal Pupils: Equal, round and reactive pupils present Neck: Neck: supple and no JVD Thyroid: thyroid normal Resp: Effort & Inspection: normal respiratory effort Auscultation: clear to auscultation bilaterally Other: Breath sounds somewhat tubular and diminished but otherwise clear Cardio: Rate: regular rate Rhythm: regular rhythm GI: GI Palp: Yes Soft to palpation Auscultation: normal bowel sounds Skin: General skin exam: normal color Extrem: General: normal to inspection Other: Right groin puncture site unremarkable no bruit no hematoma DS: Data Data Completed and Pending Labs on day of discharge: Labs from last 24 hours 10/24/20 10/24/20 10/24/20 08:13 04:24 04:24 WBC RBC Hgb Hct MCV MCH MCHC RDW Plt Count MPV Sodium 136 L Potassium 3.7 Chloride 103 Carbon Dioxide 29 Anion Gap 4 L BUN 10 Creatinine 0.70 Estim Creat Clear Calc 107 Estimated GFR > 60 Glucose 208 H POC Capillary Glucose 218 H Calcium 8.5 Magnesium 1.7 Total Bilirubin 0.4 AST 60 H ALT 29 Alkaline Phosphatase 73 Total Protein 7.0 Albumin 3.5 Vitamin B12 449.0 Folate 11.8 TSH (Reflex) 3.960 10/24/20 10/23/20 10/23/20 04:24 19:41 16:00 WBC 13.7 H RBC 4.28 L Hgb 12.7 L Hct 38.5 L MCV 90.0 MCH 29.7 MCHC 33.0 RDW 13.1 Plt Count 182 MPV 9.5 Sodium Potassium Chloride Carbon Dioxide Anion Gap BUN Creatinine Estim Creat Clear Calc Estimated GFR Glucose POC Capillary Glucose 277 H 170 H Calcium Magnesium Total Bilirubin AST ALT
[2020-10-24 13:57] LABS: Glucose Point of Care 271 (65-105)
--- NOTE | 2020-10-24 14:00 | PM.IMPN ---
Progress Note: A&P Assessment and Plan (1) Diabetes mellitus: Code(s): E11.9 - Type 2 diabetes mellitus without complications Status: Acute Assessment and Plan: Glucose 248 on admission and has been elevated since. Hemoglobin A1c 8.5. Patient does drink excessive amounts of regular soda and was educated about the benefits of decreasing soda intake and only drink diet soda. He was also educated about the benefits of adhering to healthy lifestyle. Metformin and Invokana started. Continue sliding scale protocol. Continue antifungal cream for feet. Color Separation Photographer and DM educator to see. Continue DM diet. Will continue sliding scale protocol. Hypoglycemia protocol available as well. (2) ST elevation (STEMI) myocardial infarction: Code(s): I21.3 - ST elevation (STEMI) myocardial infarction of unspecified site Status: Acute Assessment and Plan: Patient discovered in the field to have evidence of inferior ST-elevation [place]. He was taken emergently to laborer [place] and discovered to have distal right coronary artery stenosis that was intervened with drug-eluting stent. Patient had excellent results. Continue aggressive medical management with aspirin, Brilinta, metoprolol, Cozaar, and Crestor. He will need dental evaluation in the near future. (3) Ischemic cardiomyopathy: Code(s): I25.5 - Ischemic cardiomyopathy Status: Acute Assessment and Plan: Left heart catheterization showing the LV is normal in size with an inferior-posterior segment that is hypodynamic but not akinetic resulting in a global EF of 45%. Related to the STEMI. Continue ARB and beta-carmelita. Echocardiogram pending. (4) Carotid stenosis: Code(s): I65.29 - Occlusion and stenosis of unspecified carotid artery Status: Acute Assessment and Plan: Patient had bruit on exam prompting the carotid US. No symptoms of CVA. Carotid US showing possible near occlusion right ICA with less than 50 percent stenosis in the left ICA. Check CTA to verify. Medical management for now given the recent STEMI. If verified, then will need outpatient evaluation since any further treatment would be postponed given his recent AMI. 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 Discussed with Dr Abraham who felt that the vascular surgeons could see the patient after discharge and he agreed that no need for hospital to hospital transfer. jail to arrange for outpatient vascular surgery appointment. (5) CAD (coronary artery disease): Code(s): I25.10 - Atherosclerotic heart disease of [place] coronary artery without angina pectoris Status: Acute Assessment and Plan: As above with stent placed emergently. Continue aggressive medical management and modification of risk factors. (6) HTN (hypertension): Code(s): I10 - Essential (primary) hypertension Status: Acute Assessment and Plan: Patient's blood pressure was reviewed on 10/24. Blood pressure better controlled. Continue Cozaar and Toprol. (7) COPD (chronic obstructive pulmonary disease): Code(s): J44.9 - Chronic obstructive pulmonary disease, unspecified Status: Acute Assessment and Plan: Stable. No wheezing. Albuterol available as needed. Continue Symbicort. Continue to monitor. (8) DVT prophylaxis: Code(s): Z29.9 - Encounter for prophylactic measures, unspecified Status: Acute Assessment and Plan: Lovenox Subjective Date/time seen: 10/24/20 14:00 Interval history: Date of service 10/24 65yo male with HTN here for STEMI. No issues overnight. Feels well. Eating normally. No CP or SOB. Walking to the BR. Exam Narrative: Exam Narrative: AF 97.1 144/63 72 22 98% ra Gen Kumar gonzales
[2020-10-24 18:03] LABS: SARS-CoV-2 RNA PCR Negative
[2020-10-24 19:09] LABS: Glucose Point of Care 174 (65-105)
[2020-10-24] MEDS: metFORMIN HCL 500 MG TABLET PO (19:27)
--- NOTE | 2020-10-28 08:07 | PC.NURSE ---
Covid is negative
== END 2020-10-24 19:58 | DRG 174 ==
LOC: ANHED 05:45 → ANHICU 06:19 → ANHIMU 10-24 13:44 → ANHICU 10-26 11:04 → ANHIMU 10-26 11:04
PROVIDERS: Internal Medicine; Admitting Provider Specialist; Emergency Provider Emergency Medicine; Visit Provider Specialist
PROC: 4A023N7 Measurement of Cardiac Sampling and Pressure, Left Heart, Percutaneous Approach (ICD-10-PCS; CPT 93452; principal; 2020-10-22 06:05)
PROC: 4A023N8 Measurement of Cardiac Sampling and Pressure, Bilateral, Percutaneous Approach (ICD-10-PCS; 2020-10-22 06:05)
DX: I21.19 ST elevation (STEMI) myocardial infarction involving other coronary artery of inferior wall (principal); I25.10 Atherosclerotic heart disease of native coronary artery without angina pectoris; Z87.891 Personal history of nicotine dependence; J44.9 Chronic obstructive pulmonary disease, unspecified; F32.9 Major depressive disorder, single episode, unspecified; I25.5 Ischemic cardiomyopathy; Z86.16 Personal history of COVID-19; E11.9 Type 2 diabetes mellitus without complications; Z20.822 Contact with and (suspected) exposure to COVID-19
CPT/HCPCS: 36415; 70496; 70498; 71045; 80053; 80061; 82607; 82746; 82948; 83036; 83735; 84443; 84484; 85025; 85027; 85610; 85730; 86850; 86900; 86901; 93005; 93458; 93880; 94640; 96374; 99291; A9270; C1725; C1769; C1784; C1887; C1894; C9606; C9803; J0583; J1644; J1650; J1815; J2270; J3475; J7030; J7040; Q9967; U0003; U0005